=== PATIENT | male | born 2000 | race Caucasian/White ===

== ENCOUNTER 2021-11-27 16:01 | Emergency (ER) | payer OTHER ==
[~2021-11-27] VITALS: Ht 188 cm; Wt 115.3 kg
[2021-11-27 16:02] VITALS: BP 150/70
== END 2021-11-27 17:56 | disposition home or self-care (01) ==
LOC: M ED 16:01
DX: J06.9 Acute upper respiratory infection, unspecified (principal); B34.8 Other viral infections of unspecified site; R07.89 Other chest pain; Z77.098 Contact with and (suspected) exposure to other hazardous, chiefly nonmedicinal, chemicals

== ENCOUNTER 2022-09-26 20:44 | Emergency (ER) | payer OTHER ==
[~2022-09-26] VITALS: Ht 188 cm; Wt 117.7 kg
[2022-09-26 21:47] LABS: BASO % 0.2 % (0.0-1.0); EOS # 0.4 10^3/uL (0.0-0.5); EOS % 4.4 % (0.0-3.0); HEMATOCRIT 42.6 % (42.0-52.0); HEMOGLOBIN 14.5 g/dl (13.5-17.5); LYMPH # 0.9 10^3/uL (1.5-5.0); LYMPH % 10.6 % (24.0-44.0); MONO # 0.7 10^3/uL (0.0-0.8); MONO % 7.8 % (2.0-8.0); NEUTROPHILS # 6.5 10^3/uL (1.5-8.5); NEUTROPHILS % 76.8 % (36.0-66.0); PLATELET COUNT, AUTOMATED 182 10^3/uL (150-450); RED BLOOD COUNT 4.68 10^6/uL (4.30-6.10); WHITE BLOOD COUNT 8.4 10^3/uL (4.0-10.0)
[2022-09-26 22:05] LABS: LIPASE 23 U/L (12-53)
[2022-09-26 22:07] LABS: ALBUMIN 4.2 G/DL (3.2-5.2); ALKALINE PHOSPHATASE 67 U/L (46-116); ALT/SGPT 26 U/L (7.0-40); AST/SGOT 31 U/L (<34); BILIRUBIN,DIRECT 1.1 MG/DL (<0.4); BILIRUBIN,TOTAL 3.2 MG/DL (0.3-1.2); BLOOD UREA NITROGEN 12 MG/DL (9-23); CARBON DIOXIDE LEVEL 29 MMOL/L (20-31); CHLORIDE LEVEL 103 MMOL/L (98-107); GLOMERULAR FILTRATION RATE > 60.0 (>60); GLUCOSE, FASTING 102 MG/DL (60-100); POTASSIUM SERUM 4.1 MMOL/L (3.5-5.1); SODIUM LEVEL 137 MMOL/L (136-145)
[2022-09-26 22:36] LABS: RSV AMPLIFICATION NEGATIVE (NEGATIVE)
[2022-09-26] MEDS ORDERED: ISOVUE-370 76% 100ML VIAL As Ordered ONE (22:44)
[2022-09-26] MEDS ORDERED: NS 1,000 ML IV ONE (22:45)
[2022-09-26] MEDS ORDERED: ONDANSETRON 4MG 2ML VIAL IV ONE (22:45)
[2022-09-27] MEDS ORDERED: ONDA4TAB6 PO (00:38)
[2022-09-27 00:58] VITALS: BP 147/74
== END 2022-09-27 01:00 | disposition home or self-care (01) ==
LOC: M ED 20:44
DX: A08.4 Viral intestinal infection, unspecified (principal); F17.200 Nicotine dependence, unspecified, uncomplicated
CPT/HCPCS: 36415; 74177; 80048; 80076; 83690; 85025; 87631; 93005; 99284; J2405; Q9967